=== PATIENT | male | born 1960 | race Caucasian/White ===

== ENCOUNTER 2020-04-16 08:38 | Outpatient (CLI) | payer OTHER, MEDICARE, SELFPAY ==
--- NOTE | ~2020-04-16 | US_ITS ---
EXAMINATION: US art doppler w press LE DATE: 04/16/2020 11:39 CDT INDICATION: Osteomyelitis of the right great toe TECHNIQUE: Segmental pressures and plethysmographic and Doppler waveforms of the brachial and lower e xtremity arteries were obtained. COMPARISON: None. FINDINGS: Right and left brachial artery pressures of 100 mm Hg and 96 mm Hg, respectively, are concordant (nor mal difference <= 30 mmHg). The right high-thigh pressure index is 1.05 (normal > 1.2). The right ankle-brachial index (VALERIE) is 1 .19 (normal >= 0.9-1.0). The right great toe-brachial index (TBI) is 0.92 (normal >= 0.60). The right lower extremity segmental pressure gradients are normal (normal gradients <= 20-30 mmHg between xander cent levels on the same leg or the same levels on the two legs). Arterial Doppler waveforms are bipha sic. The left high-thigh pressure index is 1.35. The left VALERIE is 1.06. The left TBI is 0.74. The left lowe r extremity segmental pressure gradients are normal. Arterial Doppler waveforms are biphasic. IMPRESSION: 1. Normal lower extremity arterial Doppler. Reviewed, dictated and finalized at location [facility].
--- NOTE | ~2020-04-16 | XR_ITS ---
XR foot RT min 3V 04/16/2020 09:50 INDICATION: Osteomyelitis of the right great toe PROCEDURE: 4 views right foot COMPARISON: Comparison to multiple prior studies sequentially, with oldest reviewed study dated 05/26. FINDINGS: Fracture, dislocation or subluxation is not identified. Mild soft tissue swelling overlying the first digit. Mild osteoarthritis first MTP joint. Small degenerative calcaneal enthesophyte. The re are degenerative changes of the midfoot. No foreign bodies are identified. IMPRESSION: 1: No acute bone or joint abnormality. No evidence for osteomyelitis. If there is continued clinical concern for osteomyelitis, correlation with MRI is recommended. Reviewed, dictated and finalized at location [facility]. IMPRESSION: 1: No acute bone or joint abnormality. No evidence for osteomyelitis. If there is continued clinical concern for osteomyelitis, correlation with MRI is recomm ended.
== END 2020-04-16 08:39 | disposition home or self-care (01) ==
PROVIDERS: PCP Family Medicine; Visit Provider Plastic Surgery
DX: L97.512 Non-pressure chronic ulcer of other part of right foot with fat layer exposed (principal)
CPT/HCPCS: 73630; 93923

== ENCOUNTER 2020-05-11 15:24 | Outpatient (CLI) | payer OTHER, MEDICARE, SELFPAY ==
--- NOTE | 2020-05-11 15:26 | ECG_ITS ---
Measurements Intervals [place] Rate: 69 P: 35 CT: 140 QRS: -32 QRSD: 109 T: 11 QT: 376 QTc: 404 Interpretive Statements SINUS RHYTHM LEFT AXIS DEVIATION POOR R WAVE PROGRESSION, ANTERIOR LEADS BORDERLINE ST-T WAVE ABNORMALITY- INFERIOR LEADS BASELINE ARTIFACT- II, III, AVR, AVL, AVF BORDERLINE ECG Electronically Signed On 05-11-2020 15:52:57 CDT by Aravind Quinones D.O.
== END 2020-05-11 15:25 | disposition home or self-care (01) ==
LOC: ANHSURGERY 15:26
PROVIDERS: Anesthesiology; PCP Family Medicine; Visit Provider Plastic Surgery
DX: E87.5 Hyperkalemia (principal); I10 Essential (primary) hypertension; R94.31 Abnormal electrocardiogram [ECG] [EKG]
CPT/HCPCS: 36415; 84132; 93005

== ENCOUNTER 2020-05-15 00:36 | Outpatient (CLI) | payer OTHER, MEDICARE, SELFPAY ==
[2020-05-15 18:35] LABS: SARS-CoV-2 RNA PCR Negative
== END 2020-05-15 00:37 | disposition home or self-care (01) ==
LOC: ANHCOVIDDT 00:36
PROVIDERS: PCP Family Medicine; Visit Provider Plastic Surgery
DX: Z01.812 Encounter for preprocedural laboratory examination (principal); Z11.59 Encounter for screening for other viral diseases
CPT/HCPCS: 87635; C9803; U0003

== ENCOUNTER 2020-05-17 01:06 | Day surgery (SDC) | payer OTHER, MEDICARE, SELFPAY ==
[2020-05-03 10:18] VITALS: BMI 30.2
--- NOTE | 2020-05-16 18:44 | PM.IMHP ---
H&P: HPI History of Present Illness Date/Time: 05/16/20 18:44 Chief complaint: Diabetic Foot Ulcer Right Great Toe Narrative: Keith Arndt is a 59 year old male with diabetes complicated with diabetic neuropathy. He also has severe neuropathic pain of other cause and is a patient for this at [facility]. He has a pain pump. His legs are very sensitive to manipulation. His current problem with us is a neuropathic ulcer on the plantar R great toe. It is approx 2.0 x 1.0 lcm and is granulated and Level II. There is no infection . Comparison of new and prior x-rays do not suggest osteomyelitis. Arterial Doppler test reveals excellent inflow, sufficient to heal a wound. His legs are further compromised by venous stasis disease with recent blistering. He is ambulatory. Review of Systems Constitutional: Constitutional: Reports body ache(s) Eyes: Eyes: Reports no additional eye complaints ENT: Reports system reviewed and no additional complaints, except as documented Cardiovascular: Cardiovascular: Reports no additional cardiovascular complaints Respiratory: Comments: Normal breathing effort. Gastrointestinal: Gastrointestinal: Reports no additional gastrointestinal complaints Musculoskeletal: Musculoskeletal: Reports as per HPI Integumentary/Breasts: Skin/Breast: Reports as per HPI Neurologic: Reports as per HPI Psychiatric: Psychiatric: Reports no additional psychiatric complaints [facility] Social History Social History (Updated 05/16/20 @ 19:01 by Paco Cervantes MD) Social History: Lives with group home girl friend. Smoking packs per day: 3 Smoking cigarettes per day: 60.0 Years smoked: 34 Smoking pack-years: 102.00 Smoking status: Former smoker Smoking end date: 10/05/08 Additional smoking assessment comments: QUIT 10 YEARS AGO Alcohol intake: never Sexual Orientation (if Verbalized by the Patient): Straight or Heterosexual Spiritual care concerns: No Meds Home Medications and Allergies Home Medications Medication Instructions Recorded Confirmed Type lovastatin 20 mg tablet 20 mg PO QPM #90 tablet 08/18/19 05/03/20 Rx metoprolol tartrate 25 mg tablet 25 mg PO BID #180 tablet 08/18/19 05/03/20 Rx furosemide 20 mg tablet 40 mg PO QAM #180 tablet 09/21/19 05/03/20 Rx testosterone cypionate 200 mg/mL 200 mg IM Q14D #1 ml 01/24/20 05/03/20 Rx intramuscular oil duloxetine 60 mg capsule,delayed 60 mg PO BID #180 cap 03/12/20 05/03/20 Rx release baclofen 10 - 20 mg PO TID PRN 05/03/20 05/03/20 History gabapentin 600 mg PO TID PRN 05/03/20 05/03/20 History hydrocodone-acetaminophen 2 tablet PO QID PRN 05/03/20 05/03/20 History lamotrigine 150 mg PO BID 05/03/20 05/03/20 History lisinopril-hydrochlorothiazide 1 tablet PO DAILY 05/03/20 05/03/20 History metformin 1,000 mg PO QPM 05/03/20 05/03/20 History methocarbamol 500 mg PO DIRECTED PRN 05/03/20 05/03/20 History morphine 30 mg PO TID PRN 05/03/20 05/03/20 History polyethylene glycol 3350 [Miralax] 17 g PO HS 05/03/20 05/03/20 History aspirin 81 mg PO DAILY 05/11/20 05/11/20 History Allergies Allergy/AdvReac Type Severity Reaction Status Date / Time Sulfa (Sulfonamide AdvReac Unknown Diarrhea Verified 05/03/20 10:19 Antibiotics) sulfamethizole AdvReac Unknown Diarrhea Verified 05/03/20 10:19 Exam Const: General: no acute distress Eyes: General: appearance normal, both eyes and all related structures Resp: Effort & Inspection: normal respiratory effort Cardio: Rate: regular rate Rhythm: regular rhythm GI: GI Palp: Yes Soft to palpation Skin: General skin exam: normal color Other: 2.0 cm ulcer of right great toe pad. Adjacent 2.0 cm untraumatized papilloma. Extrem: Right lower extremity: edema Left lower extremity: edema Psych: Mental Status: mental status grossly normal Other: Great sense of humor. Assessment and Plan Assessment and plan (1) Complex regional pain syndrome i of right lower limb: C
[2020-05-17] VITALS (9 sets, daily range): BP systolic 102–128; BP diastolic 65–74; PULSE 66–77; RESP 12–18; TEMP 36.2–36.8; O2SAT 90–98
--- NOTE | 2020-05-17 07:09 | WPDHPUPDATE1 ---
History and Physical Update Update Date/Time: 05/17/20 07:09 History and Physical has been reviewed, including an updated exam of the patient. There are NO changes in the patient's condition. Risks, benefits, and alternatives have been discussed and questions answered. Patient agrees to proceed with procedure.
--- NOTE | 2020-05-17 08:22 | WPDANESEPPF ---
Anes - Initial Pre Proc Eval Procedure: Operation Date: 05/17/20 09:30 Proposed Procedures p Debridement Ulcer Right First Toe With Local Tissue Transfer - Paco Cervantes MD Date/Time: 05/17/20 08:22 Surgeon: Paco Cervantes MD Pre Op Diagnosis: Diabetic Foot Ulcer Right Great Toe Patient Data Age: 59 Gender: M Height: 6 ft 2 in Weight: 102.4 kg Allergies Allergy/AdvReac Type Severity Reaction Status Date / Time Sulfa (Sulfonamide AdvReac Unknown Diarrhea Verified 05/03/20 10:19 Antibiotics) sulfamethizole AdvReac Unknown Diarrhea Verified 05/03/20 10:19 Home Medications Medication Instructions Recorded Confirmed Type lovastatin 20 mg tablet 20 mg PO QPM #90 tablet 08/18/19 05/03/20 Rx metoprolol tartrate 25 mg tablet 25 mg PO BID #180 tablet 08/18/19 05/03/20 Rx furosemide 20 mg tablet 40 mg PO QAM #180 tablet 09/21/19 05/03/20 Rx testosterone cypionate 200 mg/mL 200 mg IM Q14D #1 ml 01/24/20 05/03/20 Rx intramuscular oil duloxetine 60 mg capsule,delayed 60 mg PO BID #180 cap 03/12/20 05/03/20 Rx release baclofen 10 - 20 mg PO TID PRN 05/03/20 05/03/20 History gabapentin 600 mg PO TID PRN 05/03/20 05/03/20 History hydrocodone-acetaminophen 2 tablet PO QID PRN 05/03/20 05/03/20 History lamotrigine 150 mg PO BID 05/03/20 05/03/20 History lisinopril-hydrochlorothiazide 1 tablet PO DAILY 05/03/20 05/03/20 History metformin 1,000 mg PO QPM 05/03/20 05/03/20 History methocarbamol 500 mg PO DIRECTED PRN 05/03/20 05/03/20 History morphine 30 mg PO TID PRN 05/03/20 05/03/20 History polyethylene glycol 3350 [Miralax] 17 g PO HS 05/03/20 05/03/20 History aspirin 81 mg PO DAILY 05/11/20 05/11/20 History Patient hx anesthesia problems: none Family hx anesthesia problems: none PMFSH Past Medical History Medical History (Updated 05/17/20 @ 08:21 by Ricardo Harrell MD) Aneurysm of unspecified site Anxiety Essential (primary) hypertension TIA (transient ischemic attack) Type 2 diabetes mellitus with hyperglycemia Social History Social History (Updated 05/16/20 @ 19:01 by Paco Cervantes MD) Social History: Lives with local intermodal truck driver girl friend. Smoking packs per day: 3 Smoking cigarettes per day: 60.0 Years smoked: 34 Smoking pack-years: 102.00 Smoking status: Former smoker Smoking end date: 10/05/08 Additional smoking assessment comments: QUIT 10 YEARS AGO Alcohol intake: never Spiritual care concerns: No Anes - Eval Final PreProcedure Day of Procedure 05/17/20 08:22 Patient weight: overweight Heart: regular rate and rhythm Lungs: clear to auscultation Airway: Mallampati scale class II Neurological: alert and oriented Last oral intake: >/= 8 hours ASA classification: III Emergent: no Anesthetic plan: proceed Anesthesia type and monitoring: general GIVS (may use LMA; pt states he is a shallow breather) and standard monitoring Informed Consent: The patient's anesthetic plan and its attendant risks and benefits were discussed with the patient/family/POA. Questions were solicited and answers provided to the satisfaction of the patient/family/POA.
[2020-05-17 08:44] LABS: Glucose Point of Care 127 (65-105)
[2020-05-17] MEDS: LACTATED RINGERS 1,000 ML 30 ML IV CONT (09:05)
[2020-05-17] MEDS: ceFAZolin SODIUM 1 GM VIAL 2 GM IV PUSH (12:10)
[2020-05-17] MEDS: LIDO 1%/EPINEPHRINE 1:100,000 20 ML VIAL INFILTRATE (12:18)
--- NOTE | 2020-05-17 12:53 | PM.OP ---
Procedure Note - Brief Procedure Note - Brief Date of procedure: 05/17/20 Pre-op diagnosis: Diabetic Foot Ulcer Right Great Toe Post-op diagnosis: same Procedure performed: Sharp debridement of subcutaneous tissue of diabetic right great toe ulcer 4 sq cm and LTT 4.0 sq cm. from adjacent papilloma. Anesthesia: GLMA Surgeon: Paco Cervantes MD Estimated blood loss (mL): 2 Tourniquet time (min): 0 Drains: No Packing: No Pathology: yes Complications: No immediate complications Condition: stable Disposition: PACU
--- NOTE | 2020-05-17 13:01 | SUR.PHASEI ---
1249; PT INTO PACU PER STRETCHER. UNABLE TO AROUSE. PUPILS PINPOINT. NASAL AIRWAY INTACT. RT FOOT DRESSING COMPLETELY OCCLUSIVE. UNABLE TO PERFORM NEUROVASCULAR CHECK. RT FOOT ELEVATED.
--- NOTE | 2020-05-17 13:11 | SUR.PHASEI ---
1308; PT REMAINS UNRESPONSIVE. RESP EVEN UNLABORED. P,Rosaura,Gladis. DR CULVER AT BEDSIDE. CALL IN 30 MINUTES IF PT STILL NONRESPONSIVE.
[2020-05-17 13:25] LABS: Glucose Point of Care 137 (65-105)
--- NOTE | 2020-05-17 13:45 | SUR.PHASEI ---
1345; PT AWAKE AND ALERT. DENIES PAIN. NASAL AIRWAY REMOVED INTACT.
--- NOTE | 2020-05-17 14:50 | PM.PROC ---
Procedure Note - Detailed Date of procedure: 05/17/20 Pre-op diagnosis: Diabetic Foot Ulcer Right Great Toe Post-op diagnosis: same Procedure performed: Sharp excision of skin subcutaneous tissue of a diabetic ulcer right great toe 4 sq cm and local tissue transfer reconstruction 4 sq cm. Description of procedure: The appropriate site was marked in preop. The patient was taken to the operating room and placed supine the operating table. A time-out was held and confirmed. He was given IV sedation. The right foot and ankle were prepped and draped in usual fashion. Patient was given 2 g of Ancef preop. The ulcerated area was trimmed on all aspects with a 15 blade removing overhanging skin and all of the granulating tissue on the surface of this shallow ulcer. Additional scar tissue was removed as well. There was no purulence and no necrotic tissue. Hemostasis was obtained. This patient has a 2 x 2 cm papilloma adjacent to this ulceration. This is a fleshy mass on a broad pedicle. He says this tissue had been present since the last operation on his toe. This mass has not changed in size or character and a long time. We cut off the posterior aspect of this, opposite the vascular pedicle, and this tissue was then easily rotated to lie over the debrided ulcer. It was sutured in position with multiple interrupted 3-0 nylon sutures. The donor site was essentially non-existent as the flap was based on a pre-existing pedicle. not appropriate bandage was applied. No tourniquet was utilized. No local anesthetic was utilized. He is being discharged home with instructions in wound care and follow-up in a prescription for cephalexin 500 mg t.i.d. 15. Surgeon: Paco Cervantes MD
== END 2020-05-17 15:00 | disposition home or self-care (01) ==
PROVIDERS: PCP Family Medicine; Visit Provider Plastic Surgery
PROC: (CPT 14040; principal; 2020-05-17 09:30)
DX: E11.621 Type 2 diabetes mellitus with foot ulcer (principal); L97.519 Non-pressure chronic ulcer of other part of right foot with unspecified severity; I10 Essential (primary) hypertension; F41.9 Anxiety disorder, unspecified; Z86.73 Personal history of transient ischemic attack (TIA), and cerebral infarction without residual deficits; Z87.891 Personal history of nicotine dependence; Z79.84 Long term (current) use of oral hypoglycemic drugs; Z79.82 Long term (current) use of aspirin
CPT/HCPCS: 14040; 87635; 88304; A9270; C9803; J0690; J2250; J2704; J3010; J7120; U0003

== ENCOUNTER 2020-07-10 07:33 | Outpatient (RCR) | payer OTHER, MEDICARE, SELFPAY ==
[2020-06-01 10:00] VITALS: BMI 30.2
--- NOTE | 2020-07-10 17:40 | P.PNWOUND_ITS ---
Wound Care Note Date/Time: 07/10/20 17:40 History: Keith was seen at the wound clinic today around noon. His current problems are on the right great toe. He has an open ulcer on the base of the distal phalanx. He has also developed an adjacent ulcer on the lateral aspect of that toe from his dressings. He has had a skin graft at this site in 2014. He had a revision with local tissue transfer in 2019. That failed. he currently has a 1/2 cm plantar ulcer that bleeds frequently at home. As we talked with him his today elected to try for a new skin graft with the use of the wound VAC. this patient is overall problems are neuropathic. He is not diabetic. His neuropathy has improved to the point that he can manage self without some much pain and believes he could handle a wound VAC. we discussed this at length and we will go ahead and schedule soon this proce layla
== END 2020-08-20 08:11 | disposition home or self-care (01) ==
LOC: ANHWOC 07:33
PROVIDERS: PCP Family Medicine; Visit Provider Plastic Surgery
DX: E11.621 Type 2 diabetes mellitus with foot ulcer (principal); L97.519 Non-pressure chronic ulcer of other part of right foot with unspecified severity
CPT/HCPCS: 99212; G0463

== ENCOUNTER 2020-07-17 00:32 | Outpatient (CLI) | payer OTHER, MEDICARE, SELFPAY ==
[2020-07-17 19:00] LABS: SARS-CoV-2 RNA PCR Negative
== END 2020-07-17 00:33 | disposition home or self-care (01) ==
LOC: ANHCOVIDDT 00:32
PROVIDERS: PCP Family Medicine; Visit Provider Plastic Surgery
DX: Z01.812 Encounter for preprocedural laboratory examination (principal); Z20.828 Contact with and (suspected) exposure to other viral communicable diseases
CPT/HCPCS: 87635; C9803; U0003

== ENCOUNTER 2020-07-19 00:26 | Day surgery (SDC) | payer OTHER, MEDICARE, SELFPAY ==
[2020-07-16 13:39] VITALS: BMI 30.2
--- NOTE | 2020-07-19 08:44 | WPDHPUPDATE1 ---
History and Physical Update Update Date/Time: 07/19/20 08:44 History and Physical has been reviewed, including an updated exam of the patient. There are NO changes in the patient's condition. Risks, benefits, and alternatives have been discussed and questions answered. Patient agrees to proceed with procedure.
[2020-07-19] MEDS: LACTATED RINGERS 1,000 ML 30 ML IV CONT (09:35)
[2020-07-19 09:47] LABS: Glucose Point of Care 132 (65-105)
[2020-07-19 09:51] VITALS: BP 88/61; PULSE 78; RESP 18; TEMP 36.9; O2SAT 95
--- NOTE | 2020-07-19 09:52 | WPDANESEPPF ---
Anes - Initial Pre Proc Eval Procedure: Operation Date: 07/19/20 11:00 Proposed Procedures p Full or Split Thickness Skin Graft To The Right Great Toe Ulcer With Wound Vac - Paco Cervantes MD Date/Time: 07/19/20 09:52 Surgeon: Paco Cervantes MD Pre Op Diagnosis: Diabetic Foot Ulcer of the Right Great Toe Patient Data Age: 59 Gender: M Height: 6 ft 2 in Weight: 102.1 kg Allergies Allergy/AdvReac Type Severity Reaction Status Date / Time Sulfa (Sulfonamide AdvReac Unknown Diarrhea Verified 07/19/20 09:17 Antibiotics) Home Medications Medication Instructions Recorded Confirmed Type lovastatin 20 mg tablet 20 mg PO QPM #90 tablet 08/18/19 07/19/20 Rx metoprolol tartrate 25 mg tablet 25 mg PO BID #180 tablet 08/18/19 07/19/20 Rx furosemide 20 mg tablet 40 mg PO QAM #180 tablet 09/21/19 07/19/20 Rx testosterone cypionate 200 mg/mL 200 mg IM Q14D #1 ml 01/24/20 07/19/20 Rx intramuscular oil duloxetine 60 mg capsule,delayed 60 mg PO BID #180 cap 03/12/20 07/19/20 Rx release baclofen 10 - 20 mg PO TID PRN 05/03/20 07/19/20 History gabapentin 600 mg PO TID PRN 05/03/20 07/19/20 History hydrocodone-acetaminophen 2 tablet PO QID PRN 05/03/20 07/19/20 History lamotrigine 150 mg PO BID 05/03/20 07/19/20 History lisinopril-hydrochlorothiazide 1 tablet PO DAILY 05/03/20 07/19/20 History metformin 1,000 mg PO QPM 05/03/20 07/19/20 History methocarbamol 500 mg PO DIRECTED PRN 05/03/20 07/19/20 History morphine 30 mg PO TID PRN 05/03/20 07/19/20 History polyethylene glycol 3350 [Miralax] 17 g PO HS 05/03/20 07/19/20 History aspirin 81 mg PO DAILY 05/11/20 07/19/20 History Laboratory Tests 07/19/20 07/19/20 09:41 09:44 Sodium Pending Potassium Pending Chloride Pending Carbon Dioxide Pending Anion Gap Pending BUN Pending Creatinine Pending Estim Creat Clear Calc Pending Estimated GFR Pending Glucose Pending POC Capillary Glucose 132 mg/dl H mg/dl (65-105) Calcium Pending Patient hx anesthesia problems: none Family hx anesthesia problems: none PMFSH Past Medical History Medical History Aneurysm of unspecified site Anxiety Essential (primary) hypertension TIA (transient ischemic attack) Type 2 diabetes mellitus with hyperglycemia Family History Family History Grandparent Family history of heart disease in male family member before age 55 Family history of Parkinson's disease Carcinoma of colon Family history of malignant neoplasm of bone Mother Diabetes mellitus Sibling Diabetes mellitus Family history of alcoholism Father Family history of alcoholism Social History Social History Social History: Lives with 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 Smoking packs per day: 3 Smoking cigarettes per day: 60.0 Years smoked: 34 Smoking pack-years: 102.00 Smoking status: Former smoker Tobacco type: cigarettes Smoking end date: 10/05/08 Additional smoking assessment comments: QUIT 10 YEARS AGO Alcohol intake: never Gender identity (if verbalized by the patient): Male Spiritual care concerns: No Anes - Eval Final PreProcedure Day of Procedure 07/19/20 09:52 Patient weight: overweight Heart: regular rate and rhythm Lungs: decreased breath sounds Airway: Mallampati scale class II Neurological: alert and oriented Last oral intake: >/= 8 hours ASA classification: III Emergent: no Anesthetic plan: proceed Anesthesia type and monitoring: general LMA and standard monitoring Informed Consent: The patient's anesthetic plan and its attendant risks and benefits were discussed with the patient/family/POA. Questions were solicited and answers provided to the satisfaction of the patient/family/POA.
[2020-07-19 09:58] LABS: Anion Gap 10 mmol/L (8-16); Blood Urea Nitrogen 22 mg/dL (9-20); Calcium 9.3 mg/dL (8.4-10.2); Carbon Dioxide 27 mmol/L (22-30); Chloride 97 mmol/L (98-107); Estimated CRCL calculation 67 ml/min; Estimated Glomerular Filt Rate > 60; Glucose 127 mg/dL (75-110); Potassium 4.5 mmol/L (3.4-5.0); Sodium 134 mmol/L (137-145)
--- NOTE | 2020-07-19 10:08 | SUR.PREOP ---
Due to skin condition and chronic pain to legs, patient refuses BE guillermo and SCD,s
[2020-07-19] MEDS: ceFAZolin 2 GM/D5W 50 ML 2 GM/50 ML BAG IVPB (10:39)
[2020-07-19] MEDS: LIDO 1%/EPINEPHRINE 1:100,000 20 ML VIAL INFILTRATE (10:41)
[2020-07-19 11:47] VITALS: BP 128/68; PULSE 80; RESP 16; O2SAT 89
--- NOTE | 2020-07-19 12:06 | P.OPB_ITS ---
Procedure Note - Brief Procedure Note - Brief Date of procedure: 07/19/20 Pre-op diagnosis: Diabetic Foot Ulcer of the Right Great Toe Post-op diagnosis: same Procedure performed: Application of FTSG from right thigh to right great toe ulcer 3 sq cm. Anesthesia: MAC Surgeon: Paco Cervantes MD Supervisor Engine Assembly: Suyapa Estimated blood loss (mL): 2 Tourniquet time (min): 0 Drains: Yes (wound VAC) Packing: No Pathology: none sent Complications: No immediate complications Condition: stable Disposition: same day
[2020-07-19 12:17] VITALS: BP 107/66; PULSE 79; RESP 16; O2SAT 95
[2020-07-19 12:47] VITALS: BP 119/65; PULSE 79; RESP 16
[2020-07-19 13:15] LABS: Glucose Point of Care 135 (65-105)
[2020-07-19 13:17] VITALS: BP 107/63; PULSE 78; RESP 16
[2020-07-19 13:47] VITALS: BP 157/69; PULSE 82; RESP 16
--- NOTE | 2020-07-19 15:28 | PM.PROC ---
Procedure Note - Detailed Date of procedure: 07/19/20 Pre-op diagnosis: Diabetic Foot Ulcer of the Right Great Toe Post-op diagnosis: same Procedure performed: Application of full-thickness skin graft 3 sq cm to diabetic ulcer of the right great toe Description of procedure: The appropriate toe was marked was the patient waited in holding. He was taken to the operating room placed supine on the operating table. Time-out was held and confirmed. He was given IV sedation. The right lower extremity was prepped and draped in the usual fashion. The site was carefully examined and prepared with abrasion with Ray-Brad sponges. Some skin around the ulcer was trimmed with scissors. The site was measured and a donor site marked on the right thigh. The donor site was infiltrated with 1% lidocaine with epinephrine. The was incised and taken as a full-thickness skin graft. The donor site was undermined and repaired with intradermal 3-0 Vicryl and glue. The graft was carefully defatted and inset with 5 0 interrupted chromic. The wound VAC was prepared and applied. The patient was given Ancef 2 g IV preop. He is discharged home with a prescription for 5 days of his cephalexin and a prescr Anesthesia: MAC Surgeon: Paco Cervantes MD Diesel Maintenance Technician: Suyapa Estimated blood loss (mL): 2 Tourniquet time (min): 0 Drains: No Packing: Yes ([employer] wound vac.) Pathology: none sent Complications: No immediate complications Condition: stable Disposition: same day
== END 2020-07-19 14:03 | disposition home or self-care (01) ==
PROVIDERS: Anesthesiology; PCP Family Medicine; Visit Provider Plastic Surgery
PROC: (CPT 15240; principal; 2020-07-19 11:00)
DX: E11.621 Type 2 diabetes mellitus with foot ulcer (principal); L97.519 Non-pressure chronic ulcer of other part of right foot with unspecified severity; I10 Essential (primary) hypertension; F41.9 Anxiety disorder, unspecified; Z86.73 Personal history of transient ischemic attack (TIA), and cerebral infarction without residual deficits; Z79.84 Long term (current) use of oral hypoglycemic drugs; Z87.891 Personal history of nicotine dependence
CPT/HCPCS: 15240; 36415; 80048; J0171; J0690; J2250; J2704; J3010; J7120

== ENCOUNTER 2020-09-13 07:38 | Outpatient (CLI) | payer OTHER, MEDICARE, SELFPAY ==
--- NOTE | ~2020-09-13 | CT_ITS ---
EXAMINATION: CTA chest PE protocol DATE: 09/13/2020 08:15 INDICATION: Dyspnea, hypoxemia TECHNIQUE: Computed tomography angiography (CTA) of the chest was performed with 100 mL Omnipaque-350 intravenous contrast timed to evaluate the pulmonary arteries. Coronal maximum intensity projection 3D-reconstructions were created by the technologist. Automated exposure control and iterative reconst ruction technique were employed. Exam dose: 814.10 mGy-cm total exam DLP. COMPARISON: 03/15/2015 CT chest FINDINGS: There is diagnostic contrast enhancement of the pulmonary arteries and no evidence of pulmo nary embolism. No thoracic aortic aneurysm or dissection. Normal heart size. Trace pericardial fluid. No pleural effusion. No pneumothorax. An approximately 9 x 9.5 mm nodular mass is noted at the posterolateral left lung base, left lower lo be (series 4 image 103), increased in size from 5 x 6 mm on 03/15/2015. Consider PET/CT scan. There are occasional 3 mm and smaller right upper and lower lobe peripheral pulmonary nodules. Calcif ied left upper lobe pulmonary granuloma. Moderately prominent emphysematous changes of the lungs. There are increased patchy groundglass infil trates scattered in the lungs compared to, which may be due to small airways disease or less likely mild pneumonitis. No consolidation is evident. There is probable mild reactive bilateral hilar and mediastinal lymph node prominence. Degenerative changes of the lower cervical and the thoracic spine. Thoracic spinal canal electrodes IMPRESSION: 9 x 9.5 mm left lower lobe nodule, increased in size from 5 x 6 mm since 03/15/2015. Cons ider PET/CT scan COPD Patchy groundglass densities scattered in the lungs which may be due to small airways disease or mild pneumonitis. No evidence of pulmonary embolism Reviewed, dictated and finalized at [facility]. Reviewed, dictated and finalized at location [facility]. ORATE STRATEGIST IMPRESSION: 9 x 9.5 mm left lower lobe nodule, increased in size from 5 x 6 mm since 03/15/2015. Consider PET/CT scan COPD Patchy groundglass densities scattered in the lungs which may be due to small a irways disease or mild pneumonitis. No evidence of pulmonary embolism
[2020-09-13 08:05] LABS: Estimated Glomerular Filt Rate 56
== END 2020-09-13 07:39 | disposition home or self-care (01) ==
PROVIDERS: PCP Family Medicine; Visit Provider Family Medicine
DX: R06.00 Dyspnea, unspecified (principal); R09.02 Hypoxemia
CPT/HCPCS: 71275; Q9967

== ENCOUNTER 2020-09-20 11:01 | Outpatient (CLI) | payer OTHER, MEDICARE, SELFPAY ==
--- NOTE | ~2020-09-20 | PE_ITS ---
EXAMINATION: PET skull to mid thigh DATE: 09/20/2020 13:00 INDICATION: Solitary pulmonary nodule. TECHNIQUE: Blood glucose level was 100 mg/dL. 9.065 mCi of 18-fluorodeoxyglucose (18-FDG) was adminis tered i.v. Low dose computed tomography (CT) images were acquired from the base of the brain to the p roximal thighs for attenuation correction and anatomic localization. Automated exposure control was e mployed. Dose-length product (DLP) was 1150 mGy-cm. Positron emission tomography (PET) images were ac quired in the same distribution. COMPARISON: Chest CT 09/13/2020 FINDINGS: Head/neck: There is increased activity in the glottis, oropharynx, oral cavity, and nose without CT c orrelate, likely physiologic. There are no pathologically enlarged lymph nodes. Chest: There is severe emphysema. There is an 11 mm nodule in left lower lobe without increased activ ity. No pleural effusion. The heart size is normal. There are coronary artery calcifications. No ursula cardial effusion. Abdomen/pelvis/proximal thighs: The liver and spleen are normal. The gallbladder is distended, likely secondary to fasting. The pancreas, adrenal glands, and kidneys are normal. There are no dilated loo ps of bowel. The appendix is normal. There is diffuse bladder wall thickening, likely secondary to ch ronic outlet obstruction from the moderately enlarged prostate. There is fat stranding around an epip loic appendage of sigmoid colon, consistent with age-indeterminate epiploic appendicitis. There are n o pathologically enlarged lymph nodes. There is no free intraperitoneal fluid. There is an intratheca l catheter. Epidural electrodes are noted. There is no osseous malignancy. IMPRESSION: 1. 11 mm left lower lobe pulmonary nodule without increased activity, increased in size from 6 mm on 03/15/2015, probably benign. Noncontrast low-dose chest CT is recommended in 6 months. Reviewed, dictated and finalized at location A. TIONAL REHABILITATION TECHNICIAN
[2020-09-20 11:26] LABS: Glucose Point of Care 100 (65-105)
== END 2020-09-20 11:02 | disposition home or self-care (01) ==
PROVIDERS: PCP Family Medicine; Visit Provider Family Medicine
DX: R91.1 Solitary pulmonary nodule (principal)
CPT/HCPCS: 78815; A9552

== ENCOUNTER 2020-10-17 06:54 | Outpatient (NON) | payer OTHER, MEDICARE, SELFPAY ==
[2020-10-17 22:14] LABS: SARS-CoV-2 RNA PCR Negative
== END 2020-10-17 06:55 ==
PROVIDERS: PCP Family Medicine; Visit Provider Internal Medicine Cardiovascular Disease
DX: Z20.822 Contact with and (suspected) exposure to COVID-19 (principal); R09.02 Hypoxemia; R91.8 Other nonspecific abnormal finding of lung field
CPT/HCPCS: C9803; U0003; U0005

== ENCOUNTER → 2020-11-12 06:51 | Outpatient (CLI) | payer OTHER, MEDICARE, SELFPAY ==
[2020-11-12 18:27] LABS: SARS-CoV-2 RNA PCR Negative
== END ==
PROVIDERS: PCP Family Medicine
DX: R06.83 Snoring (principal); Z20.822 Contact with and (suspected) exposure to COVID-19
CPT/HCPCS: C9803; U0003; U0005

== ENCOUNTER 2020-12-03 07:30 | Outpatient (RCR) | payer OTHER, MEDICARE, SELFPAY ==
--- NOTE | 2020-09-20 09:10 | PCWOUND ---
WOCN NOTE patients called to cancel appointment for today. they forgot they had another appointment at the same time. Due to some personal issues, no follow up appointment made at this time, patient or spouse will call to set something up if needed.
== END 2020-12-05 23:59 | disposition home or self-care (01) ==
LOC: ANHWOC 07:30
PROVIDERS: PCP Family Medicine; Visit Provider Plastic Surgery
DX: E11.621 Type 2 diabetes mellitus with foot ulcer (principal); L97.519 Non-pressure chronic ulcer of other part of right foot with unspecified severity
CPT/HCPCS: 99212; G0463

== ENCOUNTER 2021-01-07 21:05 | Emergency (ER) | payer OTHER, MEDICARE, SELFPAY ==
[2021-01-07] VITALS (8 sets, daily range): BP systolic 124–137; BP diastolic 71–88; PULSE 75–92; RESP 10–16; TEMP 36.6; O2SAT 90–92
--- NOTE | ~2021-01-07 | XR_ITS ---
EXAMINATION: XR chest 1V portable INDICATION: Shortness of breath TECHNIQUE: Portable AP chest at 2140 hours COMPARISON: 12/20/2009 FINDINGS: There are diffuse opacities throughout all lung zones. No pleural effusion or pneumothorax is identified. The cardiomediastinal silhouette is normal technique. IMPRESSION: 1. Diffuse lung disease, consistent with pneumonia and/or pulmonary edema. Reviewed, dictated and finalized at location A.
--- NOTE | 2021-01-07 21:23 | ECG_ITS ---
Measurements Intervals [place] Rate: 79 P: 55 VA: 163 QRS: 12 QRSD: 97 T: 3 QT: 393 QTc: 451 Interpretive Statements SINUS RHYTHM BORDERLINE ST-T WAVE ABNORMALITY- ANTEROLAT/INF LEADS BASELINE ARTIFACT- II, III, AVF, V1, V4-V6 BORDERLINE ECG Electronically Signed On 01-08-2021 6:46:08 CDT by Aravind Quinones D.O.
[2021-01-07 21:56] LABS: Basophils Percent Auto 0.2 % (0.2-1.2); Eosinophils Percent Auto 0.1 % (0-4.4); Immature Granulocyte Absolute 0.13 K/mm3 (0.00-0.031); Immature Granulocyte Percent A 1.2 % (0-0.5); Lymphocytes Absolute Auto 0.85 K/mm3 (0.9-3.2); Lymphocytes Percent Auto 7.6 % (18.3-44.2); Mean Corpuscular HGB Conc 31.1 g/dl (32-36); Mean Corpuscular Hemoglobin 25.6 pg (26-34); Mean Corpuscular Volume 82.3 fl (80-100); Monocytes Absolute Auto 0.9 K/mm3 (0.1-0.6); Monocytes Percent Auto 7.8 % (2.6-8.5); Neutrophils Absolute Auto 9.3 K/mm3 (1.3-6.7); Neutrophils Percent Auto 83.1 % (45.5-73.1); Platelet Count Result 229 k/mm3 (150-375); Red Blood Count 5.47 M/mm3 (4.6-6.20); White Blood Count 11.2 K/mm3 (4.5-10.0)
[2021-01-07 22:35] LABS: Alveolar/Arterial O2 Gradient 603.2 mmHg; Base Excess ABG 4.4 mEq/l (+/-2.0); Device NON-REBREATHER MASK; Fractional Inspired Oxygen 100 %; HCO3 ABG 30.5 mEq/l (22.0-26.0); Modified Allen's Test Pass; Oxygen Content ABG 18.3 %vol (16.0-22.0); Oxygen Saturation ABG 90.2 % (95.0-100.0); Oxyhemoglobin 86.7 % THb (90.0-100.0); PCO2 ABG 50.7 mmHg (35.0-45.0); PO2 ABG 59.1 mmHg (80.0-100.0); PO2 FiO2 Ratio Arterial Blood 0.59 %; Site Drawn LEFT RADIAL; pH ABG 7.397 (7.350-7.450)
[2021-01-07 22:37] LABS: Anion Gap 7 mmol/L (8-16); Blood Urea Nitrogen 30 mg/dL (9-20); Calcium 8.8 mg/dL (8.4-10.2); Carbon Dioxide 33 mmol/L (22-30); Chloride 89 mmol/L (98-107); Estimated CRCL calculation 86 ml/min; Estimated Glomerular Filt Rate > 60; Glucose 139 mg/dL (75-110); Potassium 3.6 mmol/L (3.4-5.0); Sodium 129 mmol/L (137-145)
[2021-01-07] MEDS: ALBUTEROL SULFATE NEB 2.5 MG/0.5 ML INH 5 MG INHALATION (22:46)
--- NOTE | 2021-01-07 22:47 | PC.NURSE ---
Call made to [facility] to speak with patient's electronics technology instructor Fany Parnell.
[2021-01-07 23:27] LABS: NT Pro B Type Natriuretic Pept 164 PG/ML (5-100); Troponin I < 0.012 ng/mL (0.000-0.034)
[2021-01-08] VITALS (19 sets, daily range): BP systolic 110–125; BP diastolic 55–89; PULSE 66–81; RESP 10–17; TEMP 36.6; O2SAT 90–97
--- NOTE | 2021-01-08 00:03 | PC.NURSE ---
Addendum entered by Marcus Tello RN 01/08/21 02:49: Continue to await return call from Bruce. Original Note: Report received from SUSIE Purcell, to continue care. Pt asleep on stretcher, easily arousable. Made aware of pending disposition.
--- NOTE | 2021-01-08 00:07 | ED.SOB ---
HPI - SOB/Dyspnea General Chief Complaint: Shortness of Breath/Dyspnea Stated Complaint: SOB Time Seen by Provider: 01/07/21 21:11 Source: patient and other Mode of arrival: EMS Limitations: clinical condition History of Present Illness HPI Narrative: 60-year-old male Multiple cardiopulmonary issues including interstitial lung disease, organizing pneumonia, pulmonary hypertension, and sounds like diastolic heart failure All of these things are followed and treated at [facility] and he was most recently hospitalized there from December 17 until January 04, 3 days ago At baseline his lungs are in pretty terrible condition and he requires 8 to 10 L of oxygen at rest to maintain target O2 saturations of 88% or better and with any activity such as trying to take a shower this requirement goes up to 15 L He also has chronic pain and takes medications for that which include respiratory depressant such as morphine Today he was sitting at home and more or less his usual state and his decided to go out to the garden for a while, and when she came back in she had difficulty arousing him and his home oximetry was showing 56% She roused him a bit and turned his oxygen up and he seemed to improve and his saturations were getting better However as he was doing that he then started to complain of some ringing in his ears and that made her decide to call 911 to have him brought to the hospital EMS had him on 10 L than 15 L then briefly on CPAP which was weaned off by respiratory after he got here They do not really know what the long-term plan for him over there is, lung transplantation has been mentioned but it sounds like it has only been in passing and not pursued, it sounds like maybe there is hope that his organizing pneumonia/pneumonitis might decide to respond to steroids He also recently had some changes made to his blood pressure medicines because of hyperkalemia and maybe his pressure had been running a little bit high for him with systolics approaching 140 and his sounds like his preferred to keep him lower than that both to protect his ventricle and also because he has a stented fusiform aneurysm in his head or neck Related Data Home Medications Medication Instructions Recorded Confirmed baclofen 10 - 20 mg PO TID PRN 05/03/20 01/11/21 gabapentin 600 mg PO TID PRN 05/03/20 01/11/21 lamotrigine 150 mg PO BID 05/03/20 01/11/21 lisinopril-hydrochlorothiazide 1 tablet PO DAILY 05/03/20 01/11/21 metformin 1,000 mg PO QPM 05/03/20 01/11/21 methocarbamol 500 mg PO DIRECTED PRN 05/03/20 01/11/21 morphine 30 mg PO TID PRN 05/03/20 01/11/21 polyethylene glycol 3350 [Miralax] 17 g PO HS 05/03/20 01/11/21 aspirin 81 mg PO DAILY 05/11/20 01/11/21 albuterol sulfate INHALATION 01/07/21 01/11/21 amlodipine 10 mg PO DAILY 01/07/21 01/11/21 carvedilol [Coreg] 25 mg PO BID 01/07/21 01/11/21 fluticasone propionate [Flonase] 2 spray INTRANASAL DAILY 01/07/21 01/11/21 uunvnfbvcbq-dwzbylrag-tbryilph 1 inh INHALATION DAILY 01/07/21 01/11/21 [Trelegy Ellipta] furosemide 80 mg PO QAM 01/07/21 01/11/21 hydralazine 01/07/21 01/11/21 potassium chloride 20 meq PO DAILY 01/07/21 01/11/21 prednisone 20 mg PO DAILY 01/07/21 01/11/21 sennosides [senna] 8.6 mg PO BID 01/07/21 01/11/21 spironolactone 25 mg PO DAILY 01/07/21 01/11/21 albuterol sulfate 2.5 mg INHALATION Q4H PRN 01/11/21 01/11/21 naloxone 4 mg/actuation nasal spray 4 mg INTRANASAL Q3M PRN 01/11/21 01/11/21 sodium chloride 0.65 % nasal spray 1 spray INTRANASAL BID PRN 01/11/21 01/11/21 aerosol sodium chloride-aloe vera nasal gel 1 applic TOPICAL BID PRN g 01/11/21 01/11/21 Allergies Allergy/AdvReac Type Severity Reaction Status Date / Time Sulfa (Sulfonamide AdvReac Unknown Diarrhea Verified 01/11/21 09:13 Antibiotics) Review of Systems Review of Systems: All systems reviewed & are unremarkable except as noted in HPI and below Constitutional: Constitutional: Reports no additional constitu
--- NOTE | 2021-01-08 00:25 | PC.NURSE ---
DEV Ivey, calls [facility] again using exchange number that received from patient's .
--- NOTE | 2021-01-08 00:37 | PC.NURSE ---
Dr. Martinez spoke with LUOIS Rivas, said she was calling people to see if the patient could be admitted and would call us back when she finds out. Pt and updated on continued delay. Pt's states that the patient needs his 9pm and 10pm pain medications for his chronic pain in his back.
[2021-01-08] MEDS: HYDROcodone/acetaminophen (*CRX) 10-325 MG TABLET 1 TAB PO (02:07)
--- NOTE | 2021-01-08 02:15 | PC.NURSE ---
Pt's spouse requests all of patient's pain medications be given; is also requesting pt have a zero gravity bed. Explained that I can attempt to find a hospital bed for the patient, but do not have access to that type of bed. Continue to await to hear back from [facility] regarding plan of care.
--- NOTE | 2021-01-08 03:00 | PC.NURSE ---
called [facility]. Spoke with Merlyn. She is waiting for the ICU triage to call her back. They are at capacity and very busy.
--- NOTE | 2021-01-08 03:15 | PC.NURSE ---
Pt sleeping soundly on stretcher and does not awaken to this RN coming into room and/or replacing pulse oximetry. Holding further pain medications at present time.
--- NOTE | 2021-01-08 03:44 | PC.NURSE ---
pt awoken from sleep and placed in a hospital bed. States this makes him feel better. Oriented to the bed's features and told to call if any needs.
--- NOTE | 2021-01-08 04:09 | PC.NURSE ---
Report to Marcus @ [facility]. States will contact further when gets a bed assignment.
--- NOTE | 2021-01-08 05:39 | PC.NURSE ---
[facility] here, report given to tea tree farmer. Preparing to transport pt to [facility].
== END 2021-01-08 05:50 ==
PROVIDERS: Emergency Provider Emergency Medicine; PCP Family Medicine
DX: J44.9 Chronic obstructive pulmonary disease, unspecified (principal); R09.02 Hypoxemia; I10 Essential (primary) hypertension; Z99.81 Dependence on supplemental oxygen; Z86.73 Personal history of transient ischemic attack (TIA), and cerebral infarction without residual deficits
CPT/HCPCS: 36415; 36600; 71045; 80048; 82805; 83880; 84484; 85025; 93005; 94640; 96374; 99212; 99284; A9270; G0463; J1100

== ENCOUNTER 2021-01-16 14:26 | Outpatient (RCR) | payer OTHER, MEDICARE, SELFPAY ==
[2021-01-16 16:42] LABS: Basophils Absolute Auto 0.1 K/mm3 (0.0-0.1); Basophils Percent Auto 0.7 % (0.2-1.2); Eosinophils Percent Auto 0.2 % (0-4.4); Hematocrit 53.1 % (42.0-52.0); Hemoglobin 16.4 g/dL (14.0-18.0); Immature Granulocyte Absolute 0.19 K/mm3 (0.00-0.031); Immature Granulocyte Percent A 1.6 % (0-0.5); Lymphocytes Percent Auto 7.5 % (18.3-44.2); Mean Corpuscular HGB Conc 30.9 g/dl (32-36); Mean Corpuscular Hemoglobin 26.8 pg (26-34); Mean Corpuscular Volume 86.6 fl (80-100); Mean Platelet Volume 9.3 fl (7.4-10.4); Monocytes Absolute Auto 0.6 K/mm3 (0.1-0.6); Monocytes Percent Auto 4.7 % (2.6-8.5); Neutrophils Absolute Auto 10.3 K/mm3 (1.3-6.7); Neutrophils Percent Auto 85.3 % (45.5-73.1); Platelet Count Result 260 k/mm3 (150-375); Red Blood Count 6.13 M/mm3 (4.6-6.20); Red Cell Distribution Width 19.7 % (11.5-14.5)
[2021-01-16 16:43] LABS: Blood Urea Nitrogen 27 mg/dL (9-20); Calcium 9.4 mg/dL (8.4-10.2); Carbon Dioxide > 40 mmol/L (22-30); Chloride 90 mmol/L (98-107); Estimated Glomerular Filt Rate > 60; Glucose 139 mg/dL (75-110); Potassium 4.1 mmol/L (3.4-5.0); Sodium 135 mmol/L (137-145)
[2021-01-16 16:54] LABS: Hemoglobin A1C 6.4 % (<5.7)
== END 2021-04-16 23:59 | disposition home or self-care (01) ==
LOC: HOME HLTH 14:26
PROVIDERS: PCP Family Medicine; Visit Provider Internal Medicine Cardiovascular Disease
DX: J96.21 Acute and chronic respiratory failure with hypoxia (principal); J43.2 Centrilobular emphysema; I50.32 Chronic diastolic (congestive) heart failure; I13.0 Hypertensive heart and chronic kidney disease with heart failure and stage 1 through stage 4 chronic kidney disease, or unspecified chronic kidney disease; N18.30 Chronic kidney disease, stage 3 unspecified; E11.22 Type 2 diabetes mellitus with diabetic chronic kidney disease; E87.5 Hyperkalemia
CPT/HCPCS: 80048; 83036; 85025

== ENCOUNTER 2021-01-21 12:23 | Outpatient (NON) | payer OTHER, MEDICARE, SELFPAY ==
[2021-01-21 13:06] LABS: Anion Gap 9 mmol/L (8-16); Blood Urea Nitrogen 22 mg/dL (7-18); Calcium 8.8 mg/dL (8.5-10.1); Carbon Dioxide 32 mmol/L (21-32); Chloride 93 mmol/L (98-108); Estimated Glomerular Filt Rate > 60; Glucose 178 mg/dL (70-99); Osmolality Calculated 285 mOsm/kg (285-295); Potassium 3.9 mmol/L (3.5-5.1); Sodium 134 mmol/L (136-145)
== END 2021-01-21 12:24 | disposition home or self-care (01) ==
LOC: CHSHH 12:28
PROVIDERS: Visit Provider Family Medicine
DX: J96.21 Acute and chronic respiratory failure with hypoxia (principal); E11.22 Type 2 diabetes mellitus with diabetic chronic kidney disease; N18.30 Chronic kidney disease, stage 3 unspecified; I50.32 Chronic diastolic (congestive) heart failure; E87.5 Hyperkalemia
CPT/HCPCS: 36415; 80048

== ENCOUNTER 2021-01-28 12:02 | Outpatient (NON) | payer OTHER, MEDICARE, SELFPAY ==
[2021-01-28 12:32] LABS: Anion Gap 6 mmol/L (8-16); Blood Urea Nitrogen 22 mg/dL (7-18); Calcium 8.6 mg/dL (8.5-10.1); Carbon Dioxide 33 mmol/L (21-32); Chloride 96 mmol/L (98-108); Estimated Glomerular Filt Rate > 60; Glucose 252 mg/dL (70-99); Osmolality Calculated 292 mOsm/kg (285-295); Potassium 3.4 mmol/L (3.5-5.1); Sodium 135 mmol/L (136-145)
== END 2021-01-28 12:03 | disposition home or self-care (01) ==
LOC: CHSHH 12:06
PROVIDERS: Visit Provider Internal Medicine Cardiovascular Disease
DX: J96.21 Acute and chronic respiratory failure with hypoxia (principal); E11.22 Type 2 diabetes mellitus with diabetic chronic kidney disease; N18.30 Chronic kidney disease, stage 3 unspecified; I50.32 Chronic diastolic (congestive) heart failure; E87.5 Hyperkalemia
CPT/HCPCS: 36415; 80048

== ENCOUNTER 2021-02-06 10:50 | Outpatient (NON) | payer OTHER, MEDICARE, SELFPAY ==
[2021-02-06 11:17] LABS: Basophils Absolute Auto 0.12 K/mm3 (0.00-0.10); Basophils Percent Auto 0.8 % (0.0-1.0); Eosinophils Percent Auto 0.7 % (1.0-6.0); Hematocrit 47.2 % (40.0-54.0); Hemoglobin 14.7 g/dL (14.0-18.0); Immature Granulocyte Absolute 0.28 K/mm3 (0.00-0.00); Immature Granulocyte Percent A 1.9 % (0.0-0.0); Lymphocytes Absolute Auto 2.59 K/mm3 (1.10-4.50); Lymphocytes Percent Auto 17.5 % (18.0-42.0); Mean Corpuscular HGB Conc 31.1 g/dL (32.0-36.0); Mean Corpuscular Hemoglobin 26.7 pg (27.0-31.0); Mean Corpuscular Volume 85.7 fL (78.0-102.0); Mean Platelet Volume 9.7 fl (8.7-11.0); Monocytes Absolute Auto 1.29 K/mm3 (0.10-0.90); Monocytes Percent Auto 8.7 % (2.0-11.0); Neutrophils Absolute Auto 10.4 K/mm3 (1.7-7.2); Neutrophils Percent Auto 70.4 % (50.0-70.0); Platelet Count Result 262 K/mm3 (150-420); Red Blood Count 5.51 M/mm3 (4.70-6.10); Red Cell Distribution Width 16.3 % (11.6-14.4); White Blood Count 14.8 K/mm3 (4.8-10.8)
[2021-02-06 11:24] LABS: Hemoglobin A1C 6.9 % (<5.7)
[2021-02-06 11:40] LABS: Alanine Aminotransferase 24 U/L (16-63); Albumin Level 3.4 g/dL (3.4-5.0); Alkaline Phosphatase 91 U/L (46-116); Anion Gap 5 mmol/L (8-16); Aspartate Amino Transferase 13 U/L (15-37); Bilirubin,Total 0.6 mg/dL (0.00-1.00); Blood Urea Nitrogen 18 mg/dL (7-18); Carbon Dioxide 35 mmol/L (21-32); Chloride 97 mmol/L (98-108); Estimated Glomerular Filt Rate > 60; Glucose 119 mg/dL (70-99); Magnesium 2.3 mg/dL (1.8-2.4); Osmolality Calculated 286 mOsm/kg (285-295); Potassium 3.9 mmol/L (3.5-5.1); Sodium 137 mmol/L (136-145); Total Protein 7.3 g/dL (6.4-8.2)
== END 2021-02-06 10:51 | disposition home or self-care (01) ==
LOC: CHSHH 10:53
PROVIDERS: Visit Provider Family Medicine
DX: J96.21 Acute and chronic respiratory failure with hypoxia (principal); J43.2 Centrilobular emphysema; E11.22 Type 2 diabetes mellitus with diabetic chronic kidney disease; I13.0 Hypertensive heart and chronic kidney disease with heart failure and stage 1 through stage 4 chronic kidney disease, or unspecified chronic kidney disease
CPT/HCPCS: 36415; 80053; 83036; 83735; 85025

== ENCOUNTER 2021-02-11 11:19 | Outpatient (NON) | payer OTHER, MEDICARE, SELFPAY ==
[2021-02-11 11:38] LABS: Anion Gap 5 mmol/L (8-16); Blood Urea Nitrogen 18 mg/dL (9-20); Calcium 8.9 mg/dL (8.4-10.2); Carbon Dioxide 39 mmol/L (22-30); Chloride 93 mmol/L (98-107); Estimated Glomerular Filt Rate > 60; Glucose 129 mg/dL (75-110); Potassium 4.1 mmol/L (3.4-5.0); Sodium 137 mmol/L (137-145)
== END 2021-02-11 11:20 | disposition home or self-care (01) ==
PROVIDERS: PCP Family Medicine; Visit Provider Internal Medicine Cardiovascular Disease
DX: R06.00 Dyspnea, unspecified (principal); Z79.899 Other long term (current) drug therapy
CPT/HCPCS: 80048; 83735

== ENCOUNTER 2021-03-11 07:33 | Outpatient (RCR) | payer OTHER, MEDICARE, SELFPAY | END 2021-04-07 23:59 | disposition home or self-care (01) | LOC: ANHWOC 07:33 | PROVIDERS: PCP Family Medicine; Visit Provider Plastic Surgery | DX: E11.621 Type 2 diabetes mellitus with foot ulcer (principal); L97.519 Non-pressure chronic ulcer of other part of right foot with unspecified severity | CPT/HCPCS: 99212; G0463 ==

== ENCOUNTER 2021-07-10 07:43 | Outpatient (RCR) | payer OTHER, MEDICARE, SELFPAY ==
--- NOTE | 2021-04-09 08:55 | PCWOUND ---
WOCN NOTE patient had to reschedule appointment from today to Thursday04/12/21 due to another doctor appointment.
== END 2021-07-16 23:59 | disposition home or self-care (01) ==
LOC: ANHWOC 07:43
PROVIDERS: PCP Family Medicine; Visit Provider Plastic Surgery
DX: E11.621 Type 2 diabetes mellitus with foot ulcer (principal); L97.519 Non-pressure chronic ulcer of other part of right foot with unspecified severity
CPT/HCPCS: 99212; G0463

== ENCOUNTER 2021-09-18 09:03 | Outpatient (CLI) | payer OTHER, MEDICARE, SELFPAY ==
--- NOTE | ~2021-09-18 | CT_ITS ---
EXAMINATION: CT abdomen pelvis wo/w con EXAM DATE: 09/18/2021 10:06 INDICATION: Nephrolithiasis, microscopic hematuria. Chronic back pain. TECHNIQUE: Spiral CT of the abdomen and pelvis was performed without contrast. The patient was then injected with small bolus intravenous Omnipaque 350, followed by delay of approximately 10 minutes to allow collecting system to opacify. A post contrast scan abdomen and pelvis was performed during inj ection of remaining contrast. A total of 130 cc intravenous contrast was administered. The dose-santi th product (DLP) for this examination was 2584.90 mGy-cm. The exposure was tailored according to pat ient size (auto mA exposure control), and iterative reconstruction (ASIR) was used as additional dose reduction technique. Correlation is made to pulmonary CT September last year. FINDINGS: There are several bilateral kidney stones measuring up to about 6 mm in each side. small r ight renal cysts measuring up to about 1.4 cm. The kidneys enhance symmetrically. There are no susp icious renal lesions. The calyces and opacified portions of ureters are unremarkable, without fillin g defects or focal suspicious strictures. The bladder is unremarkable. The prostate is unremarkable . There is left adrenal adenoma measuring 1.5 cm. Pancreas, spleen, liver are unremarkable. The gallbl adder is distended but otherwise unremarkable. There is no biliary duct dilation. There is no retro peritoneal or pelvic lymphadenopathy. Small inguinal fat-containing hernias bilaterally, small umbi lical fat-containing hernia. The appendix is normal. The stomach and small bowel are unremarkable. There is moderate amount of c olonic stool. No free intraperitoneal gas. The heart is normal in size. There are no pericardial or pleural effusions. There is moderate emphy sema. Development of basilar intralobular septal thickening, dependent aspects more involved suggests this could be pulmonary edema. Progression of interstitial lung disease not excludable. No confluent consolidation. There are no osteoblastic or osteolytic lesions identified. IMPRESSION: 1. Basilar dependent interlobular septal thickening could be edema or progression of interstitial israel ng disease. Moderate emphysema. 2. Bilateral nephrolithiasis. 3. Left adrenal adenoma. 4. Small fat-containing hernias. Reviewed, dictated and finalized at location B. S OPERATOR ASSISTANT IMPRESSION: 1. Basilar dependent interlobular septal thickening could be edema or progress ion of interstitial lung disease. Moderate emphysema. 2. Bilateral nephrolithiasis. 3. Left adrenal adenoma. 4. Small fat-containing hernias.
--- NOTE | ~2021-09-18 | XR_ITS ---
EXAMINATION: XR abdomen/kub 1V EXAM DATE: 09/18/2021 09:27 INDICATION: Microscopic hematuria. TECHNIQUE: Frontal projection(s) of the abdomen for interpretation. Correlation is made to CT abdomen pelvis same date. FINDINGS: Spine stimulator pack and pain pump obscuring left renal contour. There is stool overlying both renal contours, difficult to identify the bilateral nephrolithiasis seen on CT. Some bony degen erative changes. There is no organomegaly. IMPRESSION: Difficult identify patient's bilateral nephrolithiasis. Reviewed, dictated and finalized at location B. H TRUCK OPERATOR
[2021-09-18 09:42] LABS: Estimated Glomerular Filt Rate > 60
== END 2021-09-18 09:04 | disposition home or self-care (01) ==
LOC: ANHIMG 09:10
PROVIDERS: PCP Family Medicine; Visit Provider Urology
DX: R31.29 Other microscopic hematuria (principal); N20.0 Calculus of kidney; D35.02 Benign neoplasm of left adrenal gland; K44.9 Diaphragmatic hernia without obstruction or gangrene
CPT/HCPCS: 74018; 74178; 99212; G0463; Q9967

== ENCOUNTER 2021-10-16 07:08 | Outpatient (RCR) | payer OTHER, MEDICARE, SELFPAY | END 2021-11-05 23:59 | disposition home or self-care (01) | LOC: ANHWOC 07:08 | PROVIDERS: PCP Family Medicine; Visit Provider Plastic Surgery | DX: E11.621 Type 2 diabetes mellitus with foot ulcer (principal); L97.519 Non-pressure chronic ulcer of other part of right foot with unspecified severity | CPT/HCPCS: 99212; G0463 ==

== ENCOUNTER 2022-01-05 22:07 | Emergency (ER) | payer OTHER, MEDICARE, SELFPAY ==
--- NOTE | ~2022-01-05 | XR_ITS ---
EXAMINATION: XR chest 1V portable DATE: 01/05/2022 22:53 INDICATION: Respiratory distress. TECHNIQUE: A single frontal view of the chest was obtained. COMPARISON: Chest single view 01/07/2021, CT chest 09/13/2020, CT abdomen and pelvis 09/18/2021 FINDINGS: There are lucencies in the lungs, consistent with emphysema. There are airspace opacities i n the mid and lower lung zones. No pleural effusion or pneumothorax. The heart size is normal. There are are electrodes overlying dressing spine. IMPRESSION: 1. Airspace opacities in the mid and lower lung zones, consistent with pulmonary edema versus pneumon ia. 2. Emphysema. Reviewed, dictated and finalized at location A. IMPRESSION: 1. Airspace opacities in the mid and lower lung zones, consistent with pulmonar y edema versus pneumonia. 2. Emphysema.
[2022-01-05 22:15] VITALS: BP 155/80; PULSE 105; RESP 37; TEMP 31.8; O2SAT 41
--- NOTE | 2022-01-05 22:29 | ED.SOB ---
HPI - SOB/Dyspnea General Chief Complaint: Shortness of Breath/Dyspnea Stated Complaint: amb Time Seen by Provider: 01/05/22 22:09 Source: patient, family and RN notes reviewed Mode of arrival: EMS Limitations: clinical condition History of Present Illness HPI Narrative: 61-year-old white male presents with the severe respiratory distress. He has a history of type 2 diabetes, severe lung disease consisting of usual interstitial pneumonia, pulmonary hypertension, COPD with emphysema. He also has chronic back pain with the implantable nerve stimulator. He has had ascites congestive heart failure with renal failure. Had a history of TIA, peripheral vascular disease. He does not wish to be intubated. He does his medical care at [facility] in [place]. MD elicited complaint: shortness of breath Pertinent past history: COPD Onset (ago): day(s) (2) Timing: constant and progressively worsening Severity: severe Exacerbating factors: lying flat and exertion Relieving factors: nothing Known history of: COPD Treatment prior to arrival: oxygen and other (CPAP) Related Data Home oxygen amount: other (16L at home) Home Medications Medication Instructions Recorded Confirmed baclofen 10 - 20 mg PO TID PRN 05/03/20 01/05/22 lamotrigine 150 mg PO BID 05/03/20 01/05/22 morphine 30 mg PO TID PRN 05/03/20 01/05/22 polyethylene glycol 3350 [Miralax] 17 g PO HS 05/03/20 01/05/22 aspirin 81 mg PO DAILY 05/11/20 01/05/22 fluticasone propionate [Flonase] 2 spray INTRANASAL DAILY 01/07/21 01/05/22 albuterol sulfate 2.5 mg INHALATION Q4H PRN 01/11/21 01/05/22 sodium chloride 0.65 % nasal spray 1 spray INTRANASAL BID PRN 01/11/21 01/05/22 aerosol doxazosin 1 mg tablet 1 mg PO QHS 03/08/21 01/05/22 gabapentin 600 mg tablet 1,200 mg PO TID PRN tablet 03/08/21 01/05/22 prednisone 10 mg tablet 15 mg PO DAILY tablet 03/08/21 01/05/22 umeclidinium-vilanterol [Anoro 6.25 inh INHALATION DAILY 01/05/22 01/06/22 Ellipta] Allergies Allergy/AdvReac Type Severity Reaction Status Date / Time Sulfa (Sulfonamide AdvReac Unknown Diarrhea Verified 01/05/22 23:44 Antibiotics) [facility] Past Medical History Medical History (Updated 01/05/22 @ 23:40 by Bertrand Damon MD) Aneurysm of unspecified site Anxiety Ascites COPD (chronic obstructive pulmonary disease) Essential (primary) hypertension Lung nodule seen on imaging study Neurogenic bladder Obesity (BMI 30.0-34.9) Other hyperlipidemia Oxygen dependent Pulmonary HTN Reflex sympathetic dystrophy of the lower limb Renal failure due to vascular disorder Right ventricular dilation TIA (transient ischemic attack) Type 2 diabetes mellitus with hyperglycemia UIP (usual interstitial pneumonitis) Unspecified vitamin D deficiency Venous insufficiency (chronic) (peripheral) Family History Family History Grandparent Family history of heart disease in male family member before age 55 Family history of Parkinson's disease Carcinoma of colon Family history of malignant neoplasm of bone Mother Diabetes mellitus Sibling Diabetes mellitus Family history of alcoholism Father Family history of alcoholism Social History Social History Social History: Lives with Smoking packs per day: 3 Smoking cigarettes per day: 60.0 Years smoked: 34 Smoking pack-years: 102.00 Tobacco type: cigarettes Smoking end date: 10/05/08 Additional smoking assessment comments: QUIT 10 YEARS AGO Alcohol intake: never Gender identity (if verbalized by the patient): Male Sexual Orientation (if Verbalized by the Patient): Straight or Heterosexual Spiritual care concerns: No Exam Const: General: in distress severe and respiratory, confusion, lethargic and uncomfortable Nutritional Appearance: obese morbidly obese Orientation/consciousness: oriented to person and oriented to
[2022-01-05] MEDS: HYDROmorphone HCL INJ (*CRX) 2 MG/ML VIAL 1 MG IV PUSH (22:33)
[2022-01-05 22:34] VITALS: RESP 35; O2SAT 87
[2022-01-05 22:35] LABS: Hematocrit 47.1 % (40.0-54.0); Hemoglobin 15.1 g/dL (14.0-18.0); Mean Corpuscular HGB Conc 32.1 g/dL (32.0-36.0); Mean Corpuscular Volume 90.4 fL (78.0-102.0); Mean Platelet Volume 9.5 fl (8.7-11.0); Platelet Count Result 320 K/mm3 (150-420); Red Blood Count 5.21 M/mm3 (4.70-6.10); Red Cell Distribution Width 15.9 % (11.6-14.4)
[2022-01-05 22:43] LABS: White Blood Count 22.6 K/mm3 (4.8-10.8)
[2022-01-05 22:48] LABS: PCO2 ABG 67.6 mmHg (35-45); pH ABG 7.29 (7.35-7.45)
[2022-01-05] MEDS: methylPREDNISolone SOD SUCC 125 MG VIAL IV PUSH (22:48)
[2022-01-05 22:50] LABS: Base Excess ABG 3.2 mmol/L (0-2); HCO3 ABG 32.1 mmol/L (23-29); Oxygen Content ABG 9.9 %vol (16.0-22.0); Oxygen Saturation ABG 46.6 % (95-97); PO2 ABG 28.9 mmHg (80-90); Total Hemoglobin 15.4 g/dL (12.0-18.0)
[2022-01-05 22:51] LABS: Modified Allen's Test Unable to perform; Site Drawn RIGHT RADIAL
--- NOTE | 2022-01-05 23:20 | PC.NURSE ---
[facility] transfer [facility] called [phone]
[2022-01-05 23:21] LABS: Alanine Aminotransferase 20 U/L (16-63); Albumin Level 3.2 g/dL (3.4-5.0); Alkaline Phosphatase 96 U/L (46-116); Anion Gap 9 mmol/L (8-16); Aspartate Amino Transferase 17 U/L (15-37); Bilirubin,Total 0.6 mg/dL (0.00-1.00); Blood Urea Nitrogen 43 mg/dL (7-18); Calcium 9.6 mg/dL (8.5-10.1); Carbon Dioxide 33 mmol/L (21-32); Chloride 89 mmol/L (98-108); Estimated Glomerular Filt Rate 22; Glucose 186 mg/dL (70-99); Magnesium 2.5 mg/dL (1.8-2.4); Osmolality Calculated 287 mOsm/kg (285-295); Potassium 4.1 mmol/L (3.5-5.1); Sodium 131 mmol/L (136-145); Total Protein 7.5 g/dL (6.4-8.2)
--- NOTE | 2022-01-05 23:24 | PC.NURSE ---
[facility] returned call
[2022-01-05 23:26] LABS: NT Pro B Type Natriuretic Pept 988 pg/mL (0-125)
[2022-01-05 23:27] LABS: Ferritin 116 ng/mL (26-388); Troponin I 9.6 ng/L (0.00-60.4)
[2022-01-05 23:31] LABS: Device BIPAP; Inspiratory Pressure 16 cmH2O
[2022-01-05 23:32] LABS: Expiratory Pressure 10 cmH2O
[2022-01-05 23:38] LABS: SARS-CoV-2 RNA PCR Negative (Negative)
[2022-01-05 23:38] LABS: Base Excess ABG 1.6 mmol/L (0-2); Oxygen Content ABG 16.1 %vol (16.0-22.0); Oxygen Saturation ABG 77.6 % (95-97); Oxyhemoglobin 76.5 % (94-100); PCO2 ABG 50.7 mmHg (35-45); PO2 ABG 44.1 mmHg (80-90); pH ABG 7.36 (7.35-7.45)
[2022-01-05 23:40] LABS: Expiratory Pressure 10 cmH2O; Inspiratory Pressure 16 cmH2O; Modified Allen's Test Unable to perform; Site Drawn LEFT RADIAL
[2022-01-05 23:41] LABS: Device BIPAP
[2022-01-05 23:52] LABS: Band Neutrophils Percent 8 % (0-6); Basophils Percent Manual 0 % (0-1); Eosinophils Absolute Manual 0.45 K/mm3 (0.02-0.5); Eosinophils Percent Manual 2 % (1-6); Lymphocytes Percent Manual 8 % (18-44); Metamyelocytes Percent 2 %; Monocytes Percent Manual 4 % (3-9); Myelocytes Percent 0 %; Neutrophils Absolute Manual 18.98 K/mm3 (1.3-6.7); Neutrophils Percent Manual 76 % (46-73); Platelet Clumps Present; Platelet Estimate Adequate (Adequate); Total Cells Counted 100
[2022-01-05 23:53] LABS: Large Platelets Present
[2022-01-06] MEDS: SODIUM CHLORIDE 0.9% IV 1,000 ML 999 ML IV CONT (00:09)
[2022-01-06 00:38] VITALS: RESP 33
--- NOTE | 2022-01-06 01:19 | PC.NURSE ---
[facility] returned call, pt accepted by MD Joseph, into room 8314, /[id number]
[2022-01-06 01:23] VITALS: PULSE 94; RESP 28; O2SAT 86
--- NOTE | 2022-01-06 01:40 | PC.NURSE ---
nurse to nurse report called to Jerilyn at [facility]
[2022-01-06 01:41] VITALS: PULSE 94; RESP 27; O2SAT 86
[2022-01-06 02:25] VITALS: BP 118/66; PULSE 93; RESP 24; TEMP 36.9; O2SAT 84
== END 2022-01-06 02:30 | disposition short-term general hospital (02) ==
PROVIDERS: Emergency Provider Emergency Medicine; PCP Family Medicine
DX: R06.03 Acute respiratory distress (principal); N19 Unspecified kidney failure; I27.20 Pulmonary hypertension, unspecified; J43.1 Panlobular emphysema; R18.8 Other ascites; Z20.822 Contact with and (suspected) exposure to COVID-19
CPT/HCPCS: 36415; 36600; 71045; 80053; 82728; 82805; 83735; 83880; 84484; 85025; 85380; 87040; 94640; 96361; 96365; 96367; 96375; 99291; C9803; J0696; J1170; J2930; J3370; J7030; U0003; U0005

== ENCOUNTER 2022-01-24 07:49 | Outpatient (RCR) | payer OTHER, MEDICARE, SELFPAY ==
--- NOTE | 2022-01-09 12:02 | PCWOUND ---
Addendum entered by Sana Tidwell RN 01/13/22 07:17: Received voicemail from patients on Thursday01/10/22 at 1628, states she is sorry that she did not call to cancel patient's appointment. Patient currently in [facility] since the weekend before. Will call to reschedule new appointment once patient has been discharged. Original Note: WOCN NOTE patient did not show up for his scheduled appointment. No call was made to cancel or reschedule
== END 2022-02-12 23:59 | disposition home or self-care (01) ==
LOC: ANHWOC 07:49
PROVIDERS: PCP Family Medicine; Visit Provider Plastic Surgery
DX: E11.621 Type 2 diabetes mellitus with foot ulcer (principal); L97.512 Non-pressure chronic ulcer of other part of right foot with fat layer exposed
CPT/HCPCS: 99212; 99213; G0463

== ENCOUNTER 2022-02-20 13:01 | Outpatient (RCR) | payer OTHER, MEDICARE, SELFPAY | END 2022-05-12 08:15 | disposition home or self-care (01) | LOC: ANHWOC 13:01 | PROVIDERS: PCP Family Medicine; Visit Provider Plastic Surgery | DX: E11.621 Type 2 diabetes mellitus with foot ulcer (principal); L97.512 Non-pressure chronic ulcer of other part of right foot with fat layer exposed | CPT/HCPCS: 99212; G0463 ==

== ENCOUNTER 2023-04-30 16:37 | Outpatient (CLI) | payer OTHER, MEDICARE, SELFPAY ==
--- NOTE | ~2023-04-30 | XR_ITS ---
XR ankle LT min 3V DATE: 04/30/2023 16:57 INDICATION: Chronic pain. Charcot left ankle. TECHNIQUE: 3 views COMPARISON: 02/08/2007 left lower leg FINDINGS: There is generalized prominent soft tissue swelling of the ankle. No fracture or dislocation of the ankle or disruption of the ankle mortise is detected. There is apparent chronic fracture deformity of the anterior process of the talus. There is increased density and irregularity of the tarsal bones which would be consistent with Charcot joint suggested clinically. Consider left t foot radiographic examination for more optimal demonstration. IMPRESSION: Probable chronic Charcot joint changes at the tarsal joints Generalized soft tissue swelling of the left ankle Reviewed, dictated and finalized at location A.
== END 2023-04-30 16:38 | disposition home or self-care (01) ==
LOC: ANHIMG 16:42
PROVIDERS: PCP Family Medicine
DX: A52.16 Charcot's arthropathy (tabetic) (principal); M79.89 Other specified soft tissue disorders
CPT/HCPCS: 73610

== ENCOUNTER 2025-01-02 09:20 | Outpatient (NON) | payer MEDICARE, SELFPAY ==
[2025-01-02 09:31] LABS: Hematocrit 40.9 % (37.0-46.0); Hemoglobin 10.5 g/dL (12.4-15.3); Mean Corpuscular HGB Conc 25.7 g/dL (32-36); Mean Corpuscular Hemoglobin 17.6 pg (27.0-31.0); Mean Corpuscular Volume 68.4 fL (78.0-102.0); Mean Platelet Volume 9.2 fl (8.7-11.0); Platelet Count Result 354 K/mm3 (150-420); Red Blood Count 5.98 M/mm3 (4.70-6.10); White Blood Count 18.2 K/mm3 (4.8-10.8)
[2025-01-02 10:03] LABS: Hemoglobin A1C 8.7 % (<5.7)
--- OUTSIDE RECORDS SUMMARY | 2025-01-02 10:04 | XMS_ITS | Encounter Summary ---
Author Organization [facility] Address [address] [place] [address] Care Team Providers Care Mixing Picker Tender Name Role Phone Enrrique Gaxiola MD Primary Care Provider [phone]- [phone] Encounter Details Date Type Department Care Team (Late st Contact Info) Description 09/17/2005 Outpatient Historical [facility] Support Serv. (Adt Cardiology[facility]) [address] 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
--- OUTSIDE RECORDS SUMMARY | 2025-01-02 10:04 | XMS_ITS | Encounter Summary ---
Author Organization [facility] Address 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
--- OUTSIDE RECORDS SUMMARY | 2025-01-02 10:04 | XMS_ITS | Clinical Summary ---
Author Organization [facility] Address [address] 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 Gender Identity Not on file Sexual Orientation Not on file Plan of Treatment Health Maintenance Due Date Last Done Comments DTAP/TDAP/TD VACCINES (1 - Tdap) 1977 COLORECTAL SCREENING 2003 Colorectal Cancer Screening 2003 FIT-DNA Q 3 years 2003 FIT/FOBT Q 1 year 2003 Flex Sig/CT Colonography Q 5 years 2003 PNEUMOCOCCAL VACCINE 50+ YEARS (1 of 1 - PCV) 08/19/20 08 ZOSTER VACCINE (1 of 2) 2008 INFLUENZA VACCINE (#1) 2024 RSV VACCINE (60+ or ) (1 - 1-dose 75+ series) 2033 Care Teams Reverse Unit Operator Relationship Specialty Start Date End Date Enrrique Gaxiola MD [address] [place] [phone] PCP - General 09/01/05
--- OUTSIDE RECORDS SUMMARY | 2025-01-02 10:04 | XMS_ITS | Clinical Summary ---
Author Organization [facility] Address [address] [place] [address] Care Team Providers Care Pet Supplies Salesperson Name Role Phone Enrrique Gaxiola MD Primary Care Provider [phone] Allergies Active Allergy Reactions Criticality Noted Date Comments Sulfa Antibiotics Diarrhea 10/15/2020 Medications aspirin 81 MG chewable tablet Chew 81 mg by mouth daily. Active baclofen 10 MG tablet Take 10-20 mg by mouth 3 (three) times daily as needed for Muscle Spasms. 08/03/2020 Active furosemide 20 MG tablet Take 20 mg by mouth every morning. Active gabapentin 600 MG tablet Take 1,200 mg by mouth 3 (three) times daily. 06/21/2020 Active HYDROcodone-chino taminophen 10-325 MG tablet Take 1-2 tablets by mouth every 4 (four) hours as needed for Moderate pain (Scale 4 - 7). 10/11/2020 Active lamoTRIgine 150 MG tablet Take 150 mg by mouth 2 (two) times daily. 05/18/2020 Active metFORMIN 500 MG tablet Take 1,000 mg by mouth daily with supper. Active methocarbamol 500 MG tablet Take 500 mg by mouth 3 (three) times daily as needed for Muscle Spasms. 08/17/2020 Active morphine 30 MG Tab Take 15-30 mg by mouth 3 (three) times daily as needed for Severe pain (Scale 8 - 10). 10/11/2020 Active DULoxetine 60 MG capsule Take 60 mg by mouth 2 (two) times daily. Active lisinopril-hydr oCHLOROthiazide 10-12.5 MG tablet Take 1 tablet by mouth daily. Active lovastatin 20 MG tablet Take 20 mg by mouth daily with supper. Active metoprolol tartrate 25 MG tablet Take 25 mg by mouth 2 (two) times daily. Active vitamin D3, cholecalciferol , 1.25 MG (75079 UT) capsule Take 50,000 Units by mouth weekly. 10/12/2020 Active Social History Tobacco Use Types Packs/Day Years Used Date Smoking Tobacco: Former Cigarettes Q uit: 2010 Smokeless Tobacco: Never Alcohol Use Standard Drinks/Week Comments Never 0 (1 standard drink = 0.6 oz pur e alcohol) AUDIT-C Answer Date Recorded Q1: How often do you have a drink containing alc ohol? Never 10/15/2020 Average Number of Drinks Not on file 021 Frequency of Binge Drinking Not on file 10/05 Sex and Gender Information Value Date Recorded Sex Assigned at Not on file Legal Sex Male 11:10 AM FACILITY MECHANIC Gender Identity Not on file Sexual Orientation Not on file Last Filed Vital Signs Vital Sign Reading Time Taken Comments Blood Pressure 115/71 10/15/2020 4:30 PM FACILITY MECHANIC Pulse 68 10/15/2020 4:30 PM FACILITY MECHANIC Temperature 36.9 C (98.5 F) 10/15/2020 11:36 AM FACILITY MECHANIC Respiratory Rate 16 10/15/2020 4:30 PM FACILITY MECHANIC Oxygen Saturation 94% 10/15/2020 4:30 PM FACILITY MECHANIC Inhaled Oxygen Concentration - - Weight 106.6 kg (235 lb) 10/15/2020 11:36 AM FACILITY MECHANIC Height 182.9 cm (6') 10/15/2020 11:36 AM FACILITY MECHANIC Body Mass Index 31.87 10/15/2020 11:36 AM FACILITY MECHANIC Plan of Treatment Health Maintenance Due Date Last Done Comments Colorectal Cancer Screening Colonoscopy (10 Years) 1958 Hepatitis C 1976 DTaP, Tdap and Td Vaccines ( 1 - Tdap) 1977 Zoster Vaccines (1 of 2) 2008 Annual Medicare Wellness Visit 2023 Pneumococcal Vaccine: 65+ Ye ars (1 of 1 - PCV) 2023 COVID-19 Vaccine ( - 2023-2 5 season) 2024 RSV Immunization or 60+ Years (1 - 1-dose 75+ series) 2033 Meningococcal B Vaccine Aged Out No l onger eligible based on patient's age to complete this topic Meningococcal Vaccine Aged Out No kvng francie eligible based on patient's age to complete this topic RSV Immunizations Under 20 Months Aged Out No longer eligible based on patient's age to complete this topic Insurance MEDICARE [facility] Care Teams Pet Supplies Salesperson Relationship Specialty Start Date End Date Enrrique Gaxiola MD PCP - General FAMILY PRACTICE 10/15/20
--- OUTSIDE RECORDS SUMMARY | 2025-01-02 10:04 | XMS_ITS | Continuity of Care Document ---
Author Organization [facility] Address [address] [place] [address] Phone Care Team Providers Care Conveyor System Dispatcher Name Role Phone Unavailable Unavailable Unavailable Advance Directives Directive Yes / No Effective Date File Name No Information Encounters Encounter Description Practice Location Reason(s) For Visit Diagnoses Date Provider Providers Copied on Encounter [facility], [address], [place], [place], [id number], [place] tel:[phone] SEC Demetri LINDSEY Professional No Information 1 No Information Family History Family Member Type Diagnosis Age At Onset No Information Payers Payer name Insurance type Covered constitution party ID Authoriza tion(s) No Information Social History Type Description Quantity Date Captured Comments Sex Male Smoking Status No Information Chief Complaint And Reason For Visit No Information Reason For Referral Reason For Referral No Information History Of Present Illness Encounter Date Complaint History Of Prese nt Illness No Information Functional Status Date Functional Assessmen t No Information Instructions Date Instruction Additional Infor mation No Information Assessments Type Assessment Date No Information Patient Care Teams Name Effective Dates (start - stop) Status Members No Information
--- OUTSIDE RECORDS SUMMARY | 2025-01-02 10:05 | XMS_ITS | Encounter Summary ---
Author Organization [facility] Address [address] [place] [address] Care Team Providers Care Test Engineer Name Role Phone Enrrique Gaxiola MD Primary Care Provider [phone]- [phone] Encounter Details Date Type Department Care Team (Latest Contact Info) Description 10/01/2005 Outpatient Historical [facility] Ricardo Shepherd MD NO ADDRESS ON FILE ANAL F[facility] (Primary Dx) Social History Tobacco Use Types Packs/Day Years Used Date Smoking Tobacco: Never Assessed Sex and Gender Information Value Date Recorded Sex Assigned at Not on file Legal Sex Male 3:24 AM HOSPITAL NURSE LIAISON Gender Identity Not on file Sexual Orientation Not on file documented as of this encounter Plan of Treatment Not on file documented as of this encounter Procedures Procedure Name Priority Date/Time Associated Diagnosis Comments HEMOGLOBIN AND HEMATOCRIT Routine 09/17/2005 11:40 AM HOSPITAL NURSE LIAISON documented in this encounter Results * (ABNORMAL) HEMOGLOBIN AND HEMATOCRIT (09/17/2005 11:40 AM HOSPITAL NURSE LIAISON) HEMOGLOBIN 16.7(H) 13.6 - 16.5 g/dL INTERFACE SYSTEM HEMATOCRIT 49.5(H) 40.0 - 48.0 % INTERFACE SYSTEM 09/17/2005 11:4 0 AM HOSPITAL NURSE LIAISON us Ricardo Shepherd MD HEMATOLOGY ORDERABLES Final Result INTERFACE SYSTEM Refer to clinic/hospital department documented in this encounter Visit Diagnoses Diagnosis Anal fissure- Primary documented in this encounter Care Teams Test Engineer Relationship Specialty Start Date End Date Enrrique Gaxiola MD [address] [place] [id number] PCP - General 09/01/05 documented as of this encounter
[2025-01-02 10:11] LABS: Alanine Aminotransferase 24 U/L (16-63); Alkaline Phosphatase 111 U/L (46-116); Anion Gap 6 mmol/L (4-12); Aspartate Amino Transferase < 10 U/L (15-37); Bilirubin,Total 0.4 mg/dL (0.00-1.00); Blood Urea Nitrogen 10 mg/dL (7-18); Calcium 8.6 mg/dL (8.5-10.1); Carbon Dioxide 31 mmol/L (21-32); Chloride 101 mmol/L (98-108); Estimated Glomerular Filt Rate > 60; Ferritin 18 ng/mL (26-388); Glucose 146 mg/dL (70-99); Osmolality Calculated 288 mOsm/kg (285-295); Potassium 3.9 mmol/L (3.5-5.1); Sodium 138 mmol/L (136-145); Total Protein 6.6 g/dL (6.4-8.2); Vitamin B12 323 pg/mL (193-986)
[2025-01-02 10:17] LABS: Thyroid Stimulating Hormone Reflex 0.75 u/IU/mL (0.36-3.74)
[2025-01-02 10:48] LABS: Band Neutrophils Percent 1 % (0-6); Basophils Absolute Manual 0.18 K/mm3 (0-0.1); Basophils Percent Manual 1 % (0-1); Eosinophils Percent Manual 0 % (1-6); Monocytes Percent Manual 11 % (3-9); Neutrophils Absolute Manual 13.46 K/mm3 (1.3-6.7); Neutrophils Percent Manual 73 % (46-73); Total Cells Counted 100
[2025-01-02 10:49] LABS: Lymphocytes Absolute Manual 2.18 K/mm3 (1.1-4.5); Lymphocytes Percent Manual 12 % (18-44)
[2025-01-02 10:50] LABS: Large Platelets Present; Metamyelocytes Percent 1 %; Nucleated Red Blood Cells 1 %; Platelet Clumps Present; Platelet Estimate Adequate (Adequate); Promyelocytes Percent 1 %
[2025-01-02 10:51] LABS: Anisocytosis 1+; Hypochromasia 1+; Schistocytes None Seen
== END 2025-01-02 09:21 | disposition home or self-care (01) ==
LOC: CHSHH 09:22
PROVIDERS: PCP Family Medicine; Visit Provider Family Medicine
DX: E78.5 Hyperlipidemia, unspecified (principal); I87.2 Venous insufficiency (chronic) (peripheral); D75.1 Secondary polycythemia; J84.9 Interstitial pulmonary disease, unspecified; J96.11 Chronic respiratory failure with hypoxia; J43.1 Panlobular emphysema; I13.0 Hypertensive heart and chronic kidney disease with heart failure and stage 1 through stage 4 chronic kidney disease, or unspecified chronic kidney disease; E11.9 Type 2 diabetes mellitus without complications; D64.9 Anemia, unspecified
CPT/HCPCS: 36415; 80053; 82607; 82728; 83036; 84443; 85025